=== PATIENT | male | born 1935 | race Caucasian/White ===

== ENCOUNTER 2017-05-10 22:58 | Emergency (ER) | payer OTHER, MEDICAID ==
[~2017-05-10] VITALS: Ht 185.4 cm; Wt 86.2 kg
[2017-05-10 22:58] VITALS: BP_SYST 0
--- NOTE | 2017-05-10 22:58 | NUR ---
MICHAEL Rabago at bedside examining patient.
--- NOTE | 2017-05-10 22:58 | NUR ---
2251-PT CAME IN FROM BACK DOOR, ON BAG TO MASK VENTILATION AT 100%, ONGOING CPR BY PARAMEDICS (SQUAD 64). PT APPARENTLY ON DNR BUT NO DOCUMENT ON FILE AT THE MOMENT.
--- NOTE | 2017-05-10 23:01 | NUR ---
PRONOUNCED BY DR CABRERA
--- NOTE | 2017-05-10 23:01 | NUR ---
CODE SUMMARY: 225- Patient entered ER, no valid DNR code sheet available; compressions continued, patient placed on ER gurney and defibrillator pads. 225-IV access, 18G peripheral catheter to left AC using aseptic technique. Blood return noted, flushed well. 2253- MD Dr. Rabago verified a pulse on patient. 2300- Valid DNR form signed by patient's physician given to ER staff by patient's daughter. 2300- Patient pronounced by MD Dr. Rabago.
--- NOTE | 2017-05-10 23:30 | NUR ---
[facility] DELFIN [facility]. Spoke to Jada. Case # [id number].
--- NOTE | 2017-05-10 23:40 | NUR ---
[facility] [place] called contacted by DELFIN Ramirez. Spoke with Tena. Patient released by math specialist.
--- NOTE | 2017-05-10 23:48 | NUR ---
[facility] CALLED BACK, SPOKE WITH DAWNA, REGARDING PATIENT'S INFO
--- NOTE | 2017-05-11 00:10 | NUR ---
Called [facility], patient will be picked up by a jewelry sales representative.
--- NOTE | 2017-05-11 00:45 | NUR ---
Patient's attending physician Dr. Caldwell notified of expiration of patient. Dr. Caldwell will sign certificate.
--- NOTE | 2017-05-11 01:10 | NUR ---
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
== END 2017-05-10 23:01 | disposition expired ==
LOC: SED 22:58
DX: I46.9 Cardiac arrest, cause unspecified (principal); I10 Essential (primary) hypertension; E11.29 Type 2 diabetes mellitus with other diabetic kidney complication; N28.9 Disorder of kidney and ureter, unspecified; G20 Parkinson's disease; F02.80 Dementia in other diseases classified elsewhere, unspecified severity, without behavioral disturbance, psychotic disturbance, mood disturbance, and anxiety
CPT/HCPCS: 92950; 99291